=== PATIENT | female | born 1960 | race Caucasian/White ===

== ENCOUNTER → 2016-10-14 | Outpatient (CLI) | payer OTHER | LOC: RAD 11:29 | DX: Z12.31 Encounter for screening mammogram for malignant neoplasm of breast (principal) ==

== ENCOUNTER → 2017-12-23 | Outpatient (CLI) | payer OTHER | LOC: RAD 10:37 | DX: Z12.31 Encounter for screening mammogram for malignant neoplasm of breast (principal) ==

== ENCOUNTER → 2018-03-11 | Outpatient (CLI) | payer OTHER | LOC: MRI 10:23 | DX: M75.121 Complete rotator cuff tear or rupture of right shoulder, not specified as traumatic (principal) ==

== ENCOUNTER 2018-03-24 05:25 | Day surgery (SDC) | payer OTHER ==
[~2018-03-24] VITALS: Ht 167.6 cm; Wt 96.6 kg
[~2018-03-24 05:25] MED LIST: ASPIR 8181 MG PO; HAIR, SKIN & N1 EAC2 PO
[2018-03-24 06:39] VITALS: BP 162/84
[2018-03-24 10:25] VITALS: BP 162/84
--- NOTE | 2018-03-25 12:22 | O ---
[address] [address] OPERATIVE REPORT Name: MORE SORENSEN Room #: DEP [facility]#: [id number] Admission: 03/24/18 Attend Phys: Milan Bonner MD Discharge: 03/24/18 Date of : 58 Report #: [id number] THIS REPORT FOR: //name// CC: Kimberlyn Rafael Bonner DATE OF SERVICE: 03/24/2018 SERVICE: Orthopedics. FACILITY: [facility]. SURGEON: Milan Bonner MD. ORNAMENTAL IRONWORKER: Joie Lima NP. INDICATION FOR ORNAMENTAL IRONWORKER: Extremities positioning, suture management and assistance with repair. PREOPERATIVE DIAGNOSES: 1. Right shoulder pain. 2. Right shoulder rotator cuff tear. 3. Right shoulder biceps tendinitis. 4. Right shoulder impingement syndrome. POSTOPERATIVE DIAGNOSES: 1. Right shoulder pain. 2. Right shoulder rotator cuff tear. 3. Right shoulder biceps tendinitis. 4. Right shoulder impingement syndrome. PROCEDURES: 1. Right shoulder arthroscopic rotator cuff repair. 2. Right shoulder arthroscopic biceps tenodesis. 3. Right shoulder arthroscopic subacromial decompression. 4. Right shoulder extensive arthroscopic debridement. COMPLICATIONS: None. DRAINS: None. SPECIMENS: None. ANESTHESIA TYPE: General regional. FINDINGS: [address] [address] OPERATIVE REPORT Name: MORE SORENSEN [id number] Admission: 03/24/18 Attend Phys: Milan Bonner MD Discharge: 03/24/18 Date of : 58 Report #: [id number] 1. Full thickness tears of the supra and infraspinatus repaired with a single margin convergence suture medially with a double row construct with 2 Vargas and Nephew 4.75 mm double loaded with tape HEALICOIL anchors and a single lateral row MULTIFIX. 2. Upper border subscapularis tear with severe fraying and tearing of the biceps tendon repaired with a Vargas and Nephew triple loaded HEALICOIL suture anchor incorporating the biceps tenodesis into the subscapularis repair. HISTORY: The patient is a 57-year-old female who had a fall about a year ago now at work. This is a workmen's comp related injury. She had treated conservatively, but failed to have adequate relief and wished to have definitive surgical treatment after MRI showed a large full thickness rotator cuff tear and she failed conservative measures. Risks, benefits, alternatives and indications for surgery were discussed with her in detail. Risks include but not limited to pain, bleeding, infection, injury to nerves or blood vessels, persistent pain despite surgical intervention, failure of any repairs, reconstruction, progression of any preexisting chondral injury, stiffness, need for further surgery as well as complications related to anesthesia such as stroke, heart attack, pulmonary complications, thromboembolic disease and . Despite these risks, she wished to proceed. PROCEDURE IN DETAIL: After right upper extremity was correctly identified in the preoperative holding area as the operative extremity, the patient underwent placement of a single shot regional nerve block by Anesthesia. She was then taken to the operating room where general anesthesia was induced without complication. She was seated in beachchair position, padded appropriately. Prophylactic antibiotics were administered at appropriate time. Time-out procedure was performed. Standard posterior portal was established. Diagnostic arthroscopy revealed intense synovitis and fraying of the labrum as well as fraying of the upper border of the subscapularis and a severely degenerative biceps tendon with fraying and tearing intrasubstance. An anterior portal was established. There was also a full thickness tear of the supraspinatus and infraspinatus. The articular cartilage overall was healthy, although there was some chondromalacia anterior superiorly on the humeral head, presumably due to abrasion of the large degenerative biceps tendon tear. The upper border of the subscapularis was then debrided, the synovitis was excised with a shaver in the interval and then, the anterior aspect of the humerus and the subscapularis was then prepared with an elevator and then the shaver and then, the Vargas and Nephew 5.5-mm triple loaded HEALICOIL suture anchor was placed. The 3 sutures were then passed as follows: One mattress suture in the upper border of subscapularis, one cerclage suture around the biceps tendon x 2 and then, a second cerclage suture with one limb around the biceps and the other limb in the upper border subscapularis to complete the repair and tenodesis. After this had been performed, the biceps was transected at the labral insertion. The labrum was debrided with the shaver [address] [address] OPERATIVE REPORT Name: MORE SORENSEN Room #: DEP [facility] Randi#: [id number] Admission: 03/24/18 Attend Phys: Milan Bonner MD Discharge: 03/24/18 Date of : 58 Report #: [id number] and then, the biceps stump was debrided as well. Scope was then placed in the subacromial space. There was significant amount of bursitis, which was resected with the shaver in a typical fashion allowing exposure of the greater tuberosity, which was prepared to a bleeding surface with the shaver and then, the rotator cuff was assessed for mobility. The majority of the healthy tissue had retracted anteromedially and there was some residual tissue posteriorly, although this was not as mobile and as healthy. I used a labral tape suture in the opposite orientation of the typical margin convergence suture in order to advance the more anterior healthy tissue posteriorly to provide good mobilization. This allowed the supraspinatus to be advanced to the greater tuberosity edge. This was then repaired with the HEALICOIL anchors. Two of them were placed at the articular margin and a total of 4 mattress sutures were then placed. Sutures were tied providing repair of the rotator cuffs and then, a lateral row was placed with a MULTIFIX anchor providing a double row repair, which was noted and move as one unit as the shoulder was rotated. A posterior cutting block technique was then used to perform a subacromial decompression with the bur. After the acromioplasty was completed, the arthroscopic effusion was removed. The bony debris was lavaged. Instruments were removed. Portal sites were closed. Sterile dressing was applied. The patient was placed in abduction pillow sling. She will use a sling for 6 weeks and have a slow PT program due to her very large rotator cuff tear. <ELECTRONICALLY SIGNED> By: Milan Bonner MD 03/25/18 1222 [id number] 1825 Milan Bonner MD /nt
== END 2018-03-24 12:45 | disposition home or self-care (01) ==
LOC: TBA 05:25 → OR 05:25
DX: M75.101 Unspecified rotator cuff tear or rupture of right shoulder, not specified as traumatic (principal); M75.21 Bicipital tendinitis, right shoulder; M75.41 Impingement syndrome of right shoulder; M65.811 Other synovitis and tenosynovitis, right shoulder; M94.211 Chondromalacia, right shoulder; M75.51 Bursitis of right shoulder; Z79.82 Long term (current) use of aspirin; Z79.899 Other long term (current) drug therapy; Z98.890 Other specified postprocedural states
CPT/HCPCS: 50010; 50101; 50172; 50386; 50417; 50733; 50935; 50950; 51038; 51320; 51445; 52001; 54170; 55430; 56527; 56617; 57103; 57128; 62110; 62900; 65060; 70005

== ENCOUNTER → 2018-12-22 | Outpatient (CLI) | payer OTHER | LOC: RAD 15:53 | DX: Z12.31 Encounter for screening mammogram for malignant neoplasm of breast (principal) ==

== ENCOUNTER → 2020-02-22 | Outpatient (CLI) | payer OTHER | LOC: LAB 10:47 | PROVIDERS: ATTEND Nurse Practitioner | DX: U07.1 COVID-19 (principal) ==

== ENCOUNTER 2020-02-25 10:36 | Inpatient (IN) | payer OTHER ==
[~2020-02-25] VITALS: Ht 167.6 cm; Wt 99.9 kg
[2020-02-25 10:40] VITALS: BP 146/72
[2020-02-25 12:34] LABS: URINE BILIRUBIN NEGATIVE (Negative); URINE BLOOD TRACE (Negative); URINE CLARITY CLEAR; URINE COLOR YELLOW; URINE GLUCOSE-RANDOM* 2+ (Negative); URINE KETONES 3+ (Negative); URINE LEUKOCYTES-REFLEX NEGATIVE (Negative); URINE NITRITE-REFLEX NEGATIVE (Negative); URINE PROTEIN (DIPSTICK) 2+ (Negative); URINE SPECIFIC GRAVITY >= 1.030 (1.005-1.035); URINE UROBILINOGEN 0.2 E.U./dl (0.2-1.0)
[2020-02-25 12:37] LABS: ABSOLUTE NEUTROPHILS 8.5 thou/uL (1.4-8.2); BASOPHILS 0.1 % (0.0-2.0); HEMATOCRIT 48.2 % (37.0-47.0); HEMOGLOBIN 15.9 gm/dL (12.0-15.0); LYMPHOCYTES 8.8 % (24.0-44.0); MCH 29.4 pg (26.0-34.0); MCV 89.1 fL (80.0-100.0); MONOCYTES 8.5 % (1.0-8.0); PLATELET COUNT 307 thou/uL (150-400); POLYS 82.6 % (36.0-66.0); RBC 5.41 mil/uL (4.20-5.00); RDW 12.6 % (10.5-14.5); WBC 10.3 thou/uL (4.0-11.0)
[2020-02-25 12:48] LABS: SQUAMOUS 0-3 Few /LPF (0-3)
[2020-02-25 12:49] LABS: BACTERIA-REFLEX 1-9 Few /HPF (None Seen); CALCIUM 9.7 mg/dL (8.5-10.1); CASTS None Seen /LPF (None Seen); CREATININE 1.3 mg/dL (0.6-1.0); CRYSTALS None Seen /LPF (None Seen); POTASSIUM 3.6 mmol/L (3.5-5.1); TOTAL BILIRUBIN 0.7 mg/dL (0.2-1.0); TOTAL PROTEIN 9.3 g/dL (6.4-8.2); URINE RBC 0-2 Rare /HPF (0-2); URINE WBC-REFLEX 0-5 Rare /HPF (0-5)
[2020-02-25 13:57] LABS: BE(vivo) -18.3 mmol/L (-2 to +3); HCO3 7.4 mmol/L (22.0-26.0); sO2 96.4 % (92.0-98.0)
[2020-02-25 13:59] LABS: PCO2 19.2 mmHg (35.0-45.0); pH 7.201 (7.360-7.450)
[2020-02-25 16:02] LABS: ALBUMIN 3.5 g/dL (3.4-5.0); CALCIUM 8.9 mg/dL (8.5-10.1); CREATININE 1.3 mg/dL (0.6-1.0); PHOSPHORUS 2.9 mg/dL (2.5-4.9)
[2020-02-25 20:34] LABS: CALCIUM 8.8 mg/dL (8.5-10.1); CREATININE 1.2 mg/dL (0.6-1.0); POTASSIUM 3.1 mmol/L (3.5-5.1)
[2020-02-25 20:37] LABS: ALBUMIN 3.2 g/dL (3.4-5.0); MAGNESIUM 1.9 mg/dL (1.8-2.4); PHOSPHORUS 1.6 mg/dL (2.6-4.7)
[2020-02-25 21:53] VITALS: BP 135/58
[2020-02-26] VITALS (92 sets, daily range): BP systolic 124–184; BP diastolic 57–87
[2020-02-26 04:19] LABS: ALBUMIN 2.9 g/dL (3.4-5.0); CALCIUM 8.5 mg/dL (8.5-10.1); PHOSPHORUS 1.6 mg/dL (2.5-4.9); POTASSIUM 3.4 mmol/L (3.5-5.1)
[2020-02-26 04:26] LABS: MCH 29.3 pg (26.0-34.0); MCHC 33.6 g/dL (28.0-37.0); MCV 87.2 fL (80.0-100.0); RBC 4.59 mil/uL (4.20-5.00); RDW 12.6 % (10.5-14.5); WBC 11.1 thou/uL (4.0-11.0)
[2020-02-26 04:28] LABS: HEMOGLOBIN 13.4 gm/dL (12.0-15.0)
--- NOTE | 2020-02-26 05:02 | HC ---
[facility] [place] [address] CONSULTATION Name: MORE SORENSEN Room #: 236-P [facility] [place].[facility].#: [id number] Admission: 02/25/20 Attend Phys: Rudi Reveles MD Discharge: Date of : 58 Report #: [id number] THIS REPORT FOR: cc: Kimberlyn Hall DNP, Mary E. DNP Barry, Joseph W. MD ~ DATE OF SERVICE: 02/25/2020 INFECTIOUS DISEASE CONSULTATION ATTENDING PHYSICIAN: Dr. Reveles. REASON FOR EVALUATION: COVID positive, complicated by new diagnosis of diabetes mellitus, presented with DKA. HISTORY OF SUBJECTIVE: Chart reviewed, the patient examined. This is a 59-year-old female with a confirmed positive COVID test earlier this week, she had experienced intractable nausea and vomiting over the course of the last 48 hours. She noted her daughter tested positive for roughly 7 days ago, did have some mild upper respiratory tract signs and symptoms. No fevers or denies significant shortness of breath. She is not requiring supplemental oxygen at this point. On evaluation, he was found to have marked hyperglycemia with blood sugars almost 500 with a wide anion gap metabolic acidosis of 30. Interestingly, her sodium was in the normal range at 136. ABGs showed pH 7.201, pO2 of 100, pCO2 of 19.2 on room air. ALLERGIES: None known. MEDICINES: Include thiamine, cholecalciferol, ascorbic acid, zinc, sulfate, enoxaparin. PAST MEDICAL HISTORY: Otherwise, unremarkable. Previous , left ACL repair. SOCIAL HISTORY: Nonsmoker, occasional ethanol, no illicit drug use. FAMILY HISTORY: Noncontributory. REVIEW OF SYSTEMS: Otherwise, unremarkable 10-point review of systems. PHYSICAL EXAMINATION: GENERAL: She is alert, cooperative, appropriate. She is actually on no supplemental oxygen at this point. She is lucid, appears to be reasonably well nourished. VITAL SIGNS: Temperature 97.3, pulse 99, respirations [address] [facility] [address] [place] [address] CONSULTATION Name: MOER SORENSEN Room #: 236-[facility]#: [id number] Admission: 02/25/20 Attend Phys: Rudi Reveles MD Discharge: Date of : 58 Report #: [id number] 144/78, saturation 94%. SKIN: Warm, dry, no rashes. HEENT: Otherwise unremarkable. Normocephalic. Extraocular muscles intact. NECK: Supple. LUNGS: Generally clear to auscultation. HEART: Regular. I do not appreciate any murmur. ABDOMEN: Soft, nontender. EXTREMITIES: No cyanosis. GENITOURINARY AND RECTAL: Deferred. LABORATORY DATA: Coronavirus-2 PCR was positive. CBC: White count 10.3, H and H 15.9 and 48.2, platelets of 307. Urinalysis, 0-5 white cells. Electrolytes: Sodium 136, potassium 3.6, chloride 96, bicarbonate is 10, anion gap of 30, BUN and creatinine 30 and 1.3, glucose of 496. AST of 27, ALT of 37, total protein of 9.3, albumin of 4.0, estimated GFR of 42. ABGs: pH 7.201, pCO2 of 19.2, pO2 of 100 on room air. ASSESSMENT: COVID-19 infection without significant pulmonary-related complaints. I think it is reasonable to do a chest x-ray to get a baseline, been started on some vitamins. I think we give ivermectin as well, hold off on remdesivir at the moment as well as corticosteroids given the likelihood of really compounding the hyperglycemia. At this point, I think we have some flexibility, we will continue to monitor expectantly, certainly at risk for deteriorating overall status. We will check blood cultures as well to exclude possibility of occult process. <ELECTRONICALLY SIGNED> By: Sundar Sparrow MD 02/26/20 0502 [id number] 1847 Sundar Sparrow MD /nt
--- NOTE | 2020-02-26 07:33 | NUR ---
Pt arrived on floor with ER nurse via transport cart. Is alert and oriented, denies pain or discomfort. Assessments done as documented. notified of patient's transfer to ICU. Broussard catheter inserted per protocol. Pt tolerated procedure without complications. Dr Andrews interiano this morning, updated on pt's condition. No new orders received. Will continue to monitor.
[2020-02-26 08:08] LABS: CALCIUM 8.6 mg/dL (8.5-10.1); POTASSIUM 3.8 mmol/L (3.5-5.1)
[2020-02-26 08:12] LABS: ALBUMIN 2.9 g/dL (3.4-5.0); MAGNESIUM 1.8 mg/dL (1.8-2.4); PHOSPHORUS 1.3 mg/dL (2.6-4.7)
[2020-02-26 11:58] LABS: ALBUMIN 2.8 g/dL (3.4-5.0); CALCIUM 8.9 mg/dL (8.5-10.1); CREATININE 0.9 mg/dL (0.6-1.0); MAGNESIUM 1.9 mg/dL (1.8-2.4); POTASSIUM 3.5 mmol/L (3.5-5.1)
--- NOTE | 2020-02-26 14:09 | NUR ---
ASSUMED CARE OF THE PT AT 0700. DR. HI AT BEDSIDE AT 0930. DR. HI TO PUT IN ORDER FOR PHOS AND HTN. SPOKE TO PT'S AT 1000 AND GAVE AN UPDATE PER POC
[2020-02-26 16:44] LABS: ALBUMIN 2.6 g/dL (3.4-5.0); CALCIUM 8.5 mg/dL (8.5-10.1); CREATININE 0.8 mg/dL (0.6-1.0); MAGNESIUM 1.7 mg/dL (1.8-2.4); PHOSPHORUS 1.7 mg/dL (2.6-4.7); POTASSIUM 3.5 mmol/L (3.5-5.1)
--- NOTE | 2020-02-26 19:28 | NUR ---
Pt is DKA protocol. Pt's gap has closed, BS less than 200 since 10 am and Serum CO2 bicarb has been over 15 for day shift. Maulik AVINA notified. [employer] INSPECTOR wants her off the drip and check her BS 2 hours after the DC of insulin drip
--- NOTE | 2020-02-27 01:53 | NUR ---
Report to Rob RN @ 0130. Pt transported to via @ 0151 with possessions. stable at time of transport
[2020-02-27 02:15] VITALS: BP 152/72
--- NOTE | 2020-02-27 04:58 | NUR ---
PT ARRIVED FROM ICU VIA WHEEL CHAIR. PLACED IN ROOM 356. TELEMETRY PLACED. NO COMPLAINTS VOICED EXCEPT EXHAUSTION. NOTED ORAL TEMP OF 99.9. BLANKET REMOVED FROM BED.
[2020-02-27 05:38] LABS: ABSOLUTE NEUTROPHILS 8.1 thou/uL (1.4-8.2); BASOPHILS 0.3 % (0.0-2.0); HEMATOCRIT 39.2 % (37.0-47.0); HEMOGLOBIN 13.2 gm/dL (12.0-15.0); LYMPHOCYTES 13.2 % (24.0-44.0); MCH 29.2 pg (26.0-34.0); MCHC 33.6 g/dL (28.0-37.0); MCV 86.8 fL (80.0-100.0); MONOCYTES 9.1 % (1.0-8.0); PLATELET COUNT 260 thou/uL (150-400); POLYS 77.4 % (36.0-66.0); RBC 4.52 mil/uL (4.20-5.00); RDW 12.9 % (10.5-14.5); WBC 10.5 thou/uL (4.0-11.0)
[2020-02-27 07:19] VITALS: BP 149/72
[2020-02-27 11:58] LABS: ALBUMIN 2.6 g/dL (3.4-5.0); CALCIUM 8.5 mg/dL (8.5-10.1); CREATININE 0.7 mg/dL (0.6-1.0); POTASSIUM 3.5 mmol/L (3.5-5.1); TOTAL BILIRUBIN 0.6 mg/dL (0.2-1.0); TOTAL PROTEIN 6.6 g/dL (6.4-8.2)
--- NOTE | 2020-02-27 14:58 | NUR ---
INITIAL ASSESSMENT: SW reviewed chart and spoke with nursing and attending physician. Pt was admitted from home due to COVID-19/DKA. Pt was in the ICU and transferred to . Pt placed in Enhanced Isolation. Pt is afebrile and not requiring O2. Pt is completing course of Ivermectin. Discharge home is anticipated for tomorrow. Pt is alert/orientated x 4. Lives at home with family. Pt is employed at [employer]. Plan is for pt to discharge home when medically stable. SW to follow up with pt and assist as needed with discharge planning.
[2020-02-27 15:19] VITALS: BP 139/72
[2020-02-27 19:42] VITALS: BP 148/75
[2020-02-28 00:13] VITALS: BP 131/69
[2020-02-28 02:43] VITALS: BP 128/70
[2020-02-28 04:06] LABS: GLYCOHEMOGLOBIN (HGB A1C) 13.5 % (4.8-5.6)
--- NOTE | 2020-02-28 05:42 | NUR ---
PT MAKING SLOW PROGRESS TOWARS GOALS. PT FEVERISH OVERNIGHT WITH ORAL TEMP 101, 101.8 AND THEN THIS AM 98.7. TYLENOL GIVEN AFTER EACH FEVER. NOTED LUNG SOUNDS DIMISHED WITH O2 SAT 90% UPON ONE OCCASION, 92% ON ALL OTHER RECORDINGS. THIS AM, LUNG SOUNDS CTA IN ALL HE. I.S. PLACED AT BEDSIDE, WILL TEACH US IN AM. WILL ASK DAY RN TO TEACH IF PT STILL ASLEEP.
[2020-02-28 06:10] LABS: HEMATOCRIT 38.2 % (37.0-47.0); HEMOGLOBIN 12.6 gm/dL (12.0-15.0); MCHC 33.1 g/dL (28.0-37.0); MCV 87.6 fL (80.0-100.0); RBC 4.36 mil/uL (4.20-5.00); RDW 12.5 % (10.5-14.5); WBC 15.9 thou/uL (4.0-11.0)
[2020-02-28 06:43] LABS: CALCIUM 8.5 mg/dL (8.5-10.1); CREATININE 0.6 mg/dL (0.6-1.0); MAGNESIUM 1.9 mg/dL (1.8-2.4); POTASSIUM 3.1 mmol/L (3.5-5.1)
[2020-02-28 08:16] VITALS: BP 144/72
--- NOTE | 2020-02-28 09:42 | HC ---
[facility] [place] [address] CONSULTATION Name: MORE SORENSEN Room #: 356-P [facility] M.R.#: [id number] Admission: 02/25/20 Attend Phys: Rudi Reveles MD Discharge: Date of : 58 Report #: [id number] THIS REPORT FOR: cc: Kimberlyn Hall DNP, Mary E. DNP Al-Mubaslat, Ahmad MD ~ DATE OF SERVICE: 02/27/2020 ENDOCRINE CONSULTATION NOTE CONSULTING PHYSICIAN: Dr. Reveles. REASON FOR CONSULTATION: DKA, type 2 diabetes mellitus. HISTORY OF PRESENT ILLNESS: This is a 59-year-old female patient whose medical background is rather unremarkable other than COVID-19 infection diagnosed a week ago. The patient reports having experienced intractable nausea, vomiting, generalized weakness and fatigue for 24 hours prior to her presentation. On presentation, she was found to be severely hyperglycemic with blood glucose of near 500 mg/dL as well as evidence of diabetic ketoacidosis. Subsequently, the patient was admitted to the ICU for further care and monitoring and was treated with IV insulin. The patient does not have any recollection of a diagnosis of diabetes mellitus or any other hyperglycemic abnormality recorded in the past. She has not had issues with excessive thirst or polyuria. She has not experienced significant body weight changes. She does not have a family history of diabetes mellitus. REVIEW OF SYSTEMS: CONSTITUTIONAL: Fatigue, tiredness, but no fever or chills or body weight changes. HEENT: Negative for sore throat, sinus pain or ear drainage. PULMONARY: Negative for shortness of breath, cough or hemoptysis. CARDIAC: Negative for chest pain, palpitations, syncope or presyncope. GASTROINTESTINAL: Noted for intractable nausea and vomiting prior to presentation. NEUROLOGY: Negative for loss of consciousness, headaches or seizure activity. Otherwise, review of systems noncontributory unless mentioned in HPI. PAST MEDICAL HISTORY: Unremarkable. OUTPATIENT MEDICATIONS: None. ALLERGIES: No known drug allergies. [address] [address] CONSULTATION Name: MORE SORENSEN Room #: 356-P [facility] IN [facility]#: [id number] Admission: 02/25/20 Attend Phys: Rudi Reveles MD Discharge: Date of : 58 Report #: [id number] FAMILY HISTORY: Noncontributory. SOCIAL HISTORY: The patient denies use of tobacco or illicit drugs. She drinks alcohol only occasionally. PHYSICAL EXAMINATION: GENERAL: Pleasant female patient who is not in apparent pain or distress. VITAL SIGNS: Blood pressure is 149/72 mmHg, heart rate is 91 beats per minute, respirations 16 per minute, temperature 37.1 degrees Celsius. CONSTITUTIONAL: The patient is sitting upright in bed. She appears comfortable, not in apparent distress. HEENT: Anicteric sclerae. Intact extraocular motions. NECK: Supple, without JVD, carotid bruits or lymphadenopathy. I do not appreciate thyromegaly. CHEST: Noted for moderate air entry bilaterally with scattered rales. No wheezes or crackles. HEART: Regular rate and rhythm without murmurs or gallops. ABDOMEN: Soft, lax. No guarding. Active bowel sounds. EXTREMITIES: Lower extremity exam is negative for edema, skin breaks or ulcerations. NEUROLOGIC: Awake, alert and oriented to time, place and person. The remainder of her examination is nonfocal. PSYCHIATRIC: Pleasant, interactive. Normal mood and affect. LABORATORY DATA: Sodium 136, potassium 3.5, chloride 101, CO2 of 17, anion gap 18, was 30 on arrival, went down as low as 11 yesterday, BUN 15, creatinine 0.7, glucose 266, got as high as 342 before lunch. AST 21, lipase 80. Total bilirubin 0.6, calcium 8.5, phosphorus 1.7, magnesium 1.7, alkaline phosphatase 71, ALT 24, total protein 6.6, albumin 2.6, EGFR 85. White blood count 10.5, hemoglobin 13.2, hematocrit 39.2, platelets 260. Hemoglobin A1c is pending. She is COVID-19 positive as per her test on 02/22/2020. ASSESSMENT AND PLAN: 1. Diabetic ketoacidosis. The patient presented in a manner that is consistent with diabetic ketoacidosis, both clinically and as per her laboratory studies. The patient was successfully treated with IV insulin therapy as well as IV fluid support and she has done well as per her metabolic changes reversing. She will need to be transitioned to subcutaneous insulin therapy at this point in time as will be outlined below. 2. Type 2 diabetes mellitus. As noted above, the patient does not have a prior history of type 2 diabetes mellitus. However, her current presentation is without a doubt indicative of a diabetic state. The patient was counseled at length about the pathogenesis of diabetes mellitus and its implications as well as the importance of achieving and maintaining adequate glycemic control to [facility] [address] [place] [address] CONSULTATION Name: MORE SORENSEN Room #: 356-P [facility] IN M.R.#: [id number] Admission: 02/25/20 Attend Phys: Rudi Reveles MD Discharge: Date of : 58 Report #: [id number] avoid short term and long-term complications of hyperglycemia. I stressed the importance of effective diet and exercise changes going forward in achieving these goals. Given her DKA presentation, the patient certainly needs to be bridged towards subcutaneous insulin regimen. That said, I started Lantus insulin 16 units that was given a couple of hours ago. Also, I will place the patient on low intensity Humalog supplemental scale. Additionally, I will get the patient started on metformin therapy at a dose of 500 mg b.i.d. as well as Tradjenta 5 mg daily, hoping to get the patient maintained on a combination of metformin and DPP-4 inhibitor therapy going forward. I strongly suspect that the patient will need the presence of long-acting insulin therapy in the few weeks to come at the very least to ensure her continued stability. I stressed the importance of routine blood glucose monitoring at home to help guide treatment changes over the next few weeks. I certainly appreciate this consultation by Dr. Reveles. <ELECTRONICALLY SIGNED> By: Briana Garrido MD 02/28/20 0942 1238 1311 Briana Garrido MD /nt
--- NOTE | 2020-02-28 14:14 | NUR ---
SW reviewed chart and spoke with nursing and attending physician. Pt remains in Enhanced Isolation due to COVID-19. Pt was febrile overnight. Not requiring O2. Pt completed course of Ivermectin. Pt with new onset DM type 2. Plan is for pt to discharge home when medically stable. SW is following to assist as needed with discharge planning.
[2020-02-28 15:04] LABS: URINE BILIRUBIN NEGATIVE (Negative); URINE BLOOD 3+ (Negative); URINE CLARITY SL CLOUDY; URINE COLOR YELLOW; URINE GLUCOSE-RANDOM* 2+ (Negative); URINE KETONES 2+ (Negative); URINE LEUKOCYTES-REFLEX TRACE (Negative); URINE PROTEIN (DIPSTICK) 1+ (Negative); URINE SPECIFIC GRAVITY 1.015 (1.005-1.035)
[2020-02-28 15:21] LABS: URINE NITRITE-REFLEX POSITIVE (Negative)
[2020-02-28 15:23] LABS: CASTS None Seen /LPF (None Seen); CRYSTALS None Seen /LPF (None Seen); SQUAMOUS None Seen /LPF (0-3); URINE WBC-REFLEX >25 Many /HPF (0-5); YEAST-REFLEX Present (None Seen)
[2020-02-28 16:01] VITALS: BP 159/79
--- NOTE | 2020-02-28 18:00 | NUR ---
PT WAS AFEBRILE THIS AM BUT HAD A FEVER OF 101.2 THIS AFTERNOON.
[2020-02-28 20:03] VITALS: BP 134/70
[2020-02-28 20:11] VITALS: BP 134/70
--- NOTE | 2020-02-28 20:14 | NUR ---
PT HAD UA SENT AND HAS UTI...HAS FEVER TONIGHT...SEEMS VERY FLAT AND WITHDRAWN..VERY TIRED...WAS INCOTINTINENT OF LARGE STOOL THIS MORNING AND WAS UNSURE SHE HAD A BM..
[2020-02-29 03:51] VITALS: BP 154/77
--- NOTE | 2020-02-29 06:15 | NUR ---
PT MAKING SLOW PROGRESS TOWARDS GOALS. NOTED FEVERS OVERNIGHT. 99.4 AND 100.1 (MIDNIGHT). TYLENOL GIVEN AT MIDNIGHT, AFREBRILE THIS MORNING. NOTED ON ROOM AIR TO BE 88% SPO2 LAST NIGHT, 92% WITH 2L PER NC. CXR NOTED. LUNGS DIMINISHED WITH FAINT CRACKLES OVER RUL. PT C/O NASAL CONGESTION. YELLOW, BLOOD TINGED SPUTUM. PT HAD COMPLAINED OF DRY NASAL PASSAGES. SHE USES OCEAN SPRAY NEED, KEPT AT BEDSIDE.
[2020-02-29 06:22] LABS: HEMATOCRIT 37.7 % (37.0-47.0); HEMOGLOBIN 12.4 gm/dL (12.0-15.0); MCH 28.9 pg (26.0-34.0); MCV 87.8 fL (80.0-100.0); RBC 4.3 mil/uL (4.20-5.00); RDW 12.4 % (10.5-14.5); WBC 18.2 thou/uL (4.0-11.0)
[2020-02-29 06:31] LABS: CALCIUM 8.5 mg/dL (8.5-10.1); CREATININE 0.5 mg/dL (0.6-1.0)
[2020-02-29 06:36] LABS: POTASSIUM 2.9 mmol/L (3.5-5.1)
[2020-02-29 07:34] VITALS: BP 138/69
--- NOTE | 2020-02-29 14:13 | NUR ---
SW reviewed chart and spoke with nursing and attending physician. Pt remains in Enhanced Isolation due to COVID-19. Pt has been febrile and is requiring O2. Pt is on IV abx. Pt with new dx of DM type 2. Plan is for pt to discharge home when medically stable. LUANN is following to assist as needed with discharge planning.
[2020-02-29 15:45] VITALS: BP 146/73
[2020-02-29 21:28] VITALS: BP 157/92
[2020-03-01 04:58] VITALS: BP 176/101
[2020-03-01 05:56] LABS: HEMATOCRIT 36.4 % (37.0-47.0); HEMOGLOBIN 11.9 gm/dL (12.0-15.0); MCH 28.6 pg (26.0-34.0); MCHC 32.7 g/dL (28.0-37.0); MCV 87.5 fL (80.0-100.0); RBC 4.16 mil/uL (4.20-5.00); RDW 12.7 % (10.5-14.5); WBC 14.3 thou/uL (4.0-11.0)
[2020-03-01 06:06] LABS: CALCIUM 8.4 mg/dL (8.5-10.1); CREATININE 0.7 mg/dL (0.6-1.0); MAGNESIUM 1.7 mg/dL (1.8-2.4); POTASSIUM 3.9 mmol/L (3.5-5.1)
[2020-03-01 06:12] LABS: ALBUMIN 2.1 g/dL (3.4-5.0); DIRECT BILIRUBIN 0.2 mg/dL (<0.1-0.2); TOTAL BILIRUBIN 0.7 mg/dL (0.2-1.0); TOTAL PROTEIN 6.5 g/dL (6.4-8.2)
[2020-03-01 07:42] VITALS: BP 125/71
--- NOTE | 2020-03-01 15:01 | NUR ---
SW reviewed chart and spoke with nursing and attending physician. Pt remains in Enhanced Isolation due to COVID-19. Pt afebrile today and is on 2L of O2. Pt is on IV abx and IV steroids. Pt started on Remdesivir and Ivermectin. Plan is for pt to discharge home when medically stable. LUANN is following to assist as needed with discharge planning.
[2020-03-01 15:38] VITALS: BP 125/61
--- NOTE | 2020-03-01 18:33 | NUR ---
CARE ASSUMED AT 0700, ALERT AND ORIENTED X4, DENIES ANY PAIN NAUSEA AND VOMITTING. PT IS ON 2L OF OXYGEN. UP IN JAVAD WILY, TOLERATING IT WELL. PT STATED "SHE FEEL ALOT BETTER" TODAY. NO SIGNS OF DISTRESS NOTED. FOLET DISCONTINUE PER DR. DAVID ORDERS. UP WITH 1 ASSIST, FALL PRECUATIONS IN PLACE. PT IS PROGRESSING TOWARDS CARE.
[2020-03-01 19:36] VITALS: BP 127/71
[2020-03-02 03:53] VITALS: BP 142/78
--- NOTE | 2020-03-02 05:31 | NUR ---
VSS STABLE OVERNIGHT, 02 IS AT 2L, TELE SHOWS SR ON MONITOR. PT STATES SHE IS FEELING MUCH BETTER. SEVILLA OUT AND URINE OUTPUT IS GOOD. OFFERED PT SHOWER AND SHE FINALLY TOOK A SHOWER AT 2400. ADDED EXTENSION TUBING TO ALLOW PT TO AMBULATE TO BATHROOM MORE FREELY. PT HAS NO COMPLAINTS.
[2020-03-02 05:40] LABS: HEMATOCRIT 35.8 % (37.0-47.0); HEMOGLOBIN 11.9 gm/dL (12.0-15.0); MCHC 33.3 g/dL (28.0-37.0); RBC 4.11 mil/uL (4.20-5.00); RDW 12.5 % (10.5-14.5); WBC 11.9 thou/uL (4.0-11.0)
[2020-03-02 05:43] LABS: CALCIUM 8.5 mg/dL (8.5-10.1); CREATININE 0.6 mg/dL (0.6-1.0); POTASSIUM 3.9 mmol/L (3.5-5.1)
[2020-03-02 06:13] LABS: ALBUMIN 2.2 g/dL (3.4-5.0); DIRECT BILIRUBIN 0.2 mg/dL (<0.1-0.2); TOTAL BILIRUBIN 0.9 mg/dL (0.2-1.0)
[2020-03-02 08:02] VITALS: BP 150/95
--- NOTE | 2020-03-02 11:33 | NUR ---
CARE ASSUMED AT 0700, PT IS PROGRESSING TOWARDS CARE. ALERT AND ORIENTED X4, DENIES ANY CHEST PAIN, NAUSEA AND VOMITTING. PT IS NOW ON 1L OF OXYGEN, NO SIGNS OF DISTRESS NOTED. STANDBY TO THE BATHROOM, PT STATED SHE IS TOLERATING IT WELL. PT SEEMS TO BE PROGRESSING TOWARDS POC. WILL CONTINUE TO MONITOR.
--- NOTE | 2020-03-02 14:14 | NUR ---
SW reviewed chart and spoke with nursing and attending physician. Pt remains in Enhanced Isolation due to COVID-19. Pt is afebrile and on 2L of O2. Pt is on IV abx and IV steroids. Pt is completing courses of Remdesivir and Ivermectin. BG remains elevated. No weekend discharge anticipated. Plan is for pt to discharge home when medically stable. SW is following to assist as needed with discharge planning.
[2020-03-02 16:06] VITALS: BP 130/71
[2020-03-02 19:56] VITALS: BP 133/75
--- NOTE | 2020-03-02 22:46 | NUR ---
PT RESTING QUIETLY. VSS AFEBRILE. SAT 90%. PLACED ON 2LNC WAS ON 1LNC. HRR . NSR ON THE MONITOR. INSTRUCTED TO CALL NS TO GET TO BSC. CALL LIGHT IN REACH. NO S/S DISTRESS.
[2020-03-03 03:42] VITALS: BP 131/73
[2020-03-03 06:13] LABS: HEMATOCRIT 33.7 % (37.0-47.0); HEMOGLOBIN 11.2 gm/dL (12.0-15.0); MCH 29.2 pg (26.0-34.0); MCHC 33.3 g/dL (28.0-37.0); MCV 87.7 fL (80.0-100.0); RBC 3.84 mil/uL (4.20-5.00); RDW 12.7 % (10.5-14.5)
[2020-03-03 06:30] LABS: ALBUMIN 2.1 g/dL (3.4-5.0); CALCIUM 8.3 mg/dL (8.5-10.1); CREATININE 0.6 mg/dL (0.6-1.0); DIRECT BILIRUBIN 0.1 mg/dL (<0.1-0.2); POTASSIUM 3.9 mmol/L (3.5-5.1); TOTAL BILIRUBIN 0.6 mg/dL (0.2-1.0)
[2020-03-03 08:08] VITALS: BP 158/88
[2020-03-03 15:13] VITALS: BP 149/87
--- NOTE | 2020-03-03 16:46 | NUR ---
CARE ASSUMED AT 0700, ALERT AND ORIENTED X4, PT STATED SHE IS FEELING GOOD AND WANTED TO KNOW WHEN SHE WILL BE DISCHARGED. PT IS ON 2L OF OXYGEN, DENIES ONAY SOB OR DISTRESS. PRUNE JUICE AND STOOL SOFTNER GIVEN FOR CONSTIPATION. PT PROGRESSING TOWARDS CARE. FALL PRECAUTIONS IN PLACE. WILL CONTINUE TO MONITOR.
[2020-03-03 20:04] VITALS: BP 146/82
--- NOTE | 2020-03-03 22:01 | NUR ---
PT ALERT AND ORIENTED X4. VSS. AFEBRILE. UP TO BSC INDEPENDETLY. HRR LUNGS CLEAR UPPERS DIMINSHED AT BASES . UNLABORED ON 2LNC. DENIED PAIN. VIT C INFUSING L AC. BED DOWN. CALL LIGHT IN REACH. WILL CONTINUE TO MONITOR FOR CHANGES.
[2020-03-04 03:26] VITALS: BP 156/89
[2020-03-04 04:56] LABS: CALCIUM 8.5 mg/dL (8.5-10.1); CREATININE 0.6 mg/dL (0.6-1.0); MAGNESIUM 1.8 mg/dL (1.8-2.4); POTASSIUM 3.9 mmol/L (3.5-5.1)
[2020-03-04 04:58] LABS: HEMATOCRIT 33.6 % (37.0-47.0); HEMOGLOBIN 11.1 gm/dL (12.0-15.0); MCHC 33.2 g/dL (28.0-37.0); MCV 87.5 fL (80.0-100.0); RBC 3.84 mil/uL (4.20-5.00); RDW 12.4 % (10.5-14.5); WBC 14.7 thou/uL (4.0-11.0)
--- NOTE | 2020-03-04 04:58 | NUR ---
PROGRESSING WELL TOWARDS D/C GOALS. VSS AFEBRILE. SAT 95% ON RA. NO S/ DISTRESS. NO C/O PAIN.
[2020-03-04 05:03] LABS: ALBUMIN 2.2 g/dL (3.4-5.0); DIRECT BILIRUBIN 0.2 mg/dL (<0.1-0.2); TOTAL BILIRUBIN 0.6 mg/dL (0.2-1.0); TOTAL PROTEIN 5.5 g/dL (6.4-8.2)
[2020-03-04 07:29] VITALS: BP 143/86
[2020-03-04 15:20] VITALS: BP 136/70
--- NOTE | 2020-03-04 15:49 | NUR ---
assumed care of pt at 0700. pt aox4 in no acute distress. weaned to room air. up ad gideon. ivf infusing per order. vitals stable. calls out appropriately. possible d/c tomorrow per physician.
[2020-03-04 20:22] VITALS: BP 154/83
--- NOTE | 2020-03-04 21:53 | NUR ---
PT PROGRESSING WELL TOWARDS D/C GOALS .VSS AFEBRILE SATS WNL ON RA. LUNGS SOUND MAILY CLEAR . UNLABORED ON RA. NO S/S DISTRESS. NO C/O PAIN.
[2020-03-05 04:04] VITALS: BP 146/84
--- NOTE | 2020-03-05 04:06 | NUR ---
Pt resting quietly. No c/o. no s/s distress.
[2020-03-05 07:55] VITALS: BP 151/82
[2020-03-05 09:06] VITALS: BP 151/82
--- NOTE | 2020-03-05 12:37 | NUR ---
Received awake on bed. Due medications given as prescribed, able to swallow meds w/o difficulty. On room air. Vital signs stable. A+Ox4. On telemetry; no complains and signs of chest pain, crushing sensation and heaviness. Assited in ADLs. On carb controlled diet- tolerating well; no nausea, no vomiting and no abdominal pain noted. On blood sugar monitoring, taken and recorded accordingly; with sliding scale insulin ordered- given as prescribed. Continent of bowel and bladder, able to go to the toilet independently. with SL at L FA- on IV antibiotics. Possible discharge today. Pt seen and examined by Dr Franklin, talked to the pt's daughter- update given. To do Rest/evercise saturation prior to d/c- orders obtained; pt updated. Pt seen and examined by Dr Sparrow today, ok to discharge from his standpoint. Seen and examined by RT, tolerating evaluation well; Dr Franklin updated, a/w discharge orders. To continue monitoring patient.
[2020-03-05] MEDS ORDERED: ZINC SULFATE 2220 MG PO (13:28)
[2020-03-05] MEDS ORDERED: VITAMIN B-1100 M2 PO (13:28)
[2020-03-05] MEDS ORDERED: CEFDINIR300 MG PO (13:28)
[2020-03-05] MEDS ORDERED: PREDNISONE 10 M10 MG PO (13:28)
[2020-03-05] MEDS ORDERED: METFORMIN HCL500 M1 PO (13:28)
[2020-03-05] MEDS ORDERED: MELATONIN5 M1 PO (13:28)
[2020-03-05] MEDS ORDERED: LANTUS SUBQ (13:28)
[2020-03-05] MEDS ORDERED: VITAMIN D325 MC1 PO (13:28)
[2020-03-05] MEDS ORDERED: TRADJENTA5 MG PO (13:28)
--- NOTE | 2020-03-05 16:00 | NUR ---
DISCHARGE NOTE: SW reviewed chart and spoke with nursing and attending physician. Pt remains in Enhanced Isolation due to COVID-19. Pt is medically stable for discharge home today. No SW discharge needs identified at this time. Pt's family to provide transportation home. SW is available to assist should needs arise.
== END 2020-03-05 15:00 | disposition home or self-care (01) | DRG 871 ==
LOC: ER 10:36 → ICU 13:29 → EROBS 13:29 → ICU 22:15 → 3W 02-27 02:30
PROVIDERS: Emergency Medicine; Internal Medicine; Nurse Practitioner Family; Specialist; ADMIT Hospitalist; ATTEND Hospitalist
PROC: XW033E5 Introduction of Remdesivir Anti-infective into Peripheral Vein, Percutaneous Approach, New Technology Group 5 (ICD-10-PCS; principal; 2020-02-29)
DX: A41.89 Other specified sepsis (principal); E11.10 Type 2 diabetes mellitus with ketoacidosis without coma; U07.1 COVID-19; J12.82 Pneumonia due to coronavirus disease 2019; J96.00 Acute respiratory failure, unspecified whether with hypoxia or hypercapnia; N39.0 Urinary tract infection, site not specified; E87.1 Hypo-osmolality and hyponatremia; E86.0 Dehydration; E87.6 Hypokalemia; E83.42 Hypomagnesemia; K75.9 Inflammatory liver disease, unspecified; Z98.891 History of uterine scar from previous surgery; Z79.82 Long term (current) use of aspirin; Z79.899 Other long term (current) drug therapy
CPT/HCPCS: 10078; 10879

== ENCOUNTER → 2020-03-22 | Outpatient (CLI) | payer OTHER ==
[~2020-03-22] MED LIST changes: +CEFDINIR300 MG PO; +LANTUS SUBQ; +MELATONIN5 M1 PO; +METFORMIN HCL500 M1 PO; +PREDNISONE 10 M10 MG PO; +TRADJENTA5 MG PO; +VITAMIN B-1100 M2 PO; +VITAMIN D325 MC1 PO; +ZINC SULFATE 2220 MG PO
[2020-03-22 11:11] LABS: ABSOLUTE NEUTROPHILS 6.1 thou/uL (1.4-8.2); BASOPHILS 0.8 % (0.0-2.0); EOSINOPHILS 3.3 % (0.0-3.0); HEMATOCRIT 37.4 % (37.0-47.0); HEMOGLOBIN 12.7 gm/dL (12.0-15.0); LYMPHOCYTES 20.8 % (24.0-44.0); MCH 30.1 pg (26.0-34.0); MCHC 33.9 g/dL (28.0-37.0); MCV 88.7 fL (80.0-100.0); MONOCYTES 8.6 % (1.0-8.0); PLATELET COUNT 316 thou/uL (150-400); POLYS 66.5 % (36.0-66.0); RBC 4.22 mil/uL (4.20-5.00); RDW 13.9 % (10.5-14.5); WBC 9.2 thou/uL (4.0-11.0)
[2020-03-22 11:28] LABS: ALBUMIN 3.5 g/dL (3.4-5.0); CALCIUM 8.9 mg/dL (8.5-10.1); CREATININE 0.7 mg/dL (0.6-1.0); POTASSIUM 3.7 mmol/L (3.5-5.1); TOTAL BILIRUBIN 0.8 mg/dL (0.2-1.0); TOTAL PROTEIN 7.1 g/dL (6.4-8.2)
== END ==
LOC: RAD 10:42 → LAB 10:42
PROVIDERS: ATTEND Nurse Practitioner
DX: U07.1 COVID-19 (principal); J12.82 Pneumonia due to coronavirus disease 2019; E11.65 Type 2 diabetes mellitus with hyperglycemia; Z79.4 Long term (current) use of insulin

== ENCOUNTER → 2020-03-26 | Outpatient (CLI) | payer OTHER | LOC: RAD 11:31 | PROVIDERS: ATTEND Nurse Practitioner | DX: R91.8 Other nonspecific abnormal finding of lung field (principal); U07.1 COVID-19; J12.82 Pneumonia due to coronavirus disease 2019 ==

== ENCOUNTER → 2020-06-05 | Outpatient (CLI) | payer OTHER ==
[2020-06-05 08:58] LABS: CHOLESTEROL 220 mg/dL (<200); HDL CHOLESTEROL 42 mg/dL (>40); LDL CHOLESTEROL 153 mg/dL (<100); TC:HDL 5.2 Ratio (Not establshd); TRIGLYCERIDE 129 mg/dL (<150); VLDL 26 mg/dL (<40)
== END ==
LOC: LAB 07:52
DX: E11.9 Type 2 diabetes mellitus without complications (principal); Z79.4 Long term (current) use of insulin

== ENCOUNTER → 2020-12-19 | Outpatient (CLI) | payer OTHER ==
[2020-12-19 14:45] LABS: CREATININE 0.8 mg/dL (0.6-1.0)
== END ==
LOC: MRI 11-29 10:13
DX: H47.11 Papilledema associated with increased intracranial pressure (principal); R51.9 Headache, unspecified